=== PATIENT | female | born 1985 | race Caucasian/White ===

== ENCOUNTER → 2018-07-05 12:55 | Outpatient (CLI) | payer OTHER, SELFPAY ==
[2018-07-05 13:00] LABS: Adenovirus,PCR Not Detected (NotDetected); Bordetella Pertussis Not Detected (NotDetected); Chlamydophila Pneumoniae, PCR Not Detected (NotDetected); Coronavirus 229E Not Detected (NotDetected); Coronavirus NL63 Not Detected (NotDetected); Coronavirus OC43 Not Detected (NotDetected); Coronovirus HKU1,PCR Not Detected (NotDetected); Human Metapneumovirus Not Detected (NotDetected); Influenza A, PCR Not Detected (NotDetected); Influenza AH1, 2009 Not Detected (NotDetected); Influenza AH1, PCR Not Detected (NotDetected); Influenza AH3,PCR Not Detected (NotDetected); Influenza B, PCR Not Detected (NotDetected); Mycoplasma Pneumoniae, PCR Not Detected (NotDetected); Parainfluenza 1, PCR Not Detected (NotDetected); Parainfluenza 2, PCR Not Detected (NotDetected); Parainfluenza 3, PCR Not Detected (NotDetected); Parainfluenza 4, PCR Not Detected (NotDetected); Respiratory Syncytial Virus Not Detected (NotDetected); Rhinovirus/Enterovirus Not Detected (NotDetected)
--- NOTE | 2018-07-05 13:02 | XR_ITS ---
XR chest 2V HISTORY: Left-sided chest pain with cough, smoker ITS.REASON: COUGH,FEVER ORDERING PHYSICIAN: Claudia Latham PATIENT AGE: 32 years COMPARISON: None FINDINGS: The cardiomediastinal silhouette and pulmonary vascularity are within normal limits. The lungs are clear without infiltrates, suspicious nodules, or pleural effusions. There is mild hyperinflation. Calcified granuloma is present in the right upper lobe. There is a [id number] thoracic scoliosis convex right. IMPRESSION: 1. Hyperinflation suggesting small airway disease such as COPD, asthma, bronchitis 2. Thoracic scoliosis
== END ==
PROVIDERS: Visit Provider Nurse Practitioner Family
DX: R05 Cough (principal); R50.9 Fever, unspecified
CPT/HCPCS: 71046; 87486; 87581; 87633; 87798

== ENCOUNTER 2020-10-07 09:52 | Emergency (ER) | payer OTHER, SELFPAY ==
[2020-10-07 10:10] VITALS: BP 103/73; PULSE 96; RESP 17; TEMP 36.3; O2SAT 99; BMI 20.8
[2020-10-07 10:34] LABS: UTC Influenza A Antigen Negative (Negative); UTC Strep Screen (Rapid) Negative (Negative)
--- NOTE | 2020-10-07 10:34 | HMH.EDUTC ---
[facility] [place] Disposition Clinical Impression: Sinusitis Qualifiers: Sinusitis location: unspecified location Chronicity: unspecified Qualified Code(s): J32.9 - Chronic sinusitis, unspecified Disposition: Home, Self-Care Condition on Discharge: Good Instructions: Sinusitis, Sinus Headache, DI for Sinusitis, DI for COVID-19 (Suspected or Confirmed ), Preventing the Spread of Coronavirus Discharge Instructions Additional Instructions: *Monitor Temp, Over the counter Motrin or Tylenol as directed/as needed Tylenol every 4 hours and Motrin every 6 hours (as long as your family doctor has told you that you can take it) for fever or pain. and straight to ER if unable to lower temp less than 101.0 after medication given *Warm salt water gargles may help to soothe the throat *Throat Lozenges *Warm fluids like tea with honey may help to soothe the throat *Sleep elevated *Humidifier/Vaporizer *Flonase 2 sprays in each nostril daily but be aware that it may take 2-3 days before you notice improvement Over the counter Cough medication like Delsym may help with cough, make sure to check with pharmacy to make sure it will not interact with other medications you are taking Your throat swab was sent for culture. Those results are typically sent to your primary care. Be sure to follow up in 2-3 days with your family doctor/primary care physician if no improvement so they can review those result and treat if necessary. If you don?t have a primary care doctor, I recommend you get one but in the mean time, you will have to return to a walk in clinic Follow up IMMEDIATELY for new or worsening symptoms or no Noticeable improvement over the next 48-72 hours. 911 for difficulty breathing or swallowing You were tested for today for COVID19 your test result should be back in the next 24-48 hours, you may call to the [facility] to see if your test results are back in the next 48 hours [phone] [facility] hours are 9am-9pm You was given a handout with instructions for Self Quarantine and Self isolation for while you wait on test results and what to do if they are positive If you are positive the Health Dept will be contacting you also Prescriptions: Doxycycline Monohydrate [Doxycycline [place] 100mg Tab] 100 mg PO Q12 7 Days #14 tab Transmission Status: Received by [facility] Fluticasone Propionate [Flonase 50mcg nasal spray 16gm] 1 spr NS DAILY #1 bottle Transmission Status: Received by [facility] Referrals: Kerrie Tay APRN [Primary Care Provider] - As needed Forms: Work/School Release Time of Disposition: 10:48 Medical Decision Making - Fortino Inquiry Pt receiving controlled substance: No Fortino was queried for this patient: No Vital Signs: 10/07/20 10:10 10/07/20 10:54 Temperature 97.4 F L 97.4 F L Temperature Source Oral Pulse Rate 96 H Pulse Rate [Left Brachial] 96 H Respiratory Rate 17 17 Blood Pressure 103/73 L Blood Pressure [Left Arm] 103/73 L Blood Pressure Mean [Left Arm] 83 Blood Pressure Source [Left Arm] Automatic Cuff Blood Pressure Position [Left Arm] Sitting 02 Sat by Pulse Oximetry 99 Oxygen Delivery Method Room Air - Lab Data Lab results reviewed: Yes: I reviewed the patient's lab results. Lab Results 10/07/20 10:21: Influenza Type A Ag Negative, Influenza Type B Ag Negative 10/07/20 10:21: Strep Scn Rapid Clinic Negative Orders (Tests/Meds): ORDERS Category Date Time Status Covid-19 Nasal PCR ([facility]) Routine Lab 10/07/20 10:15 Received Strep Screen Confirmation Stat Micro 10/07/20 10:21 Received [facility] UTC HPI - General Stated complaint: body aches, headache, congestion Time Seen by Provider: 10/07/20 10:34 Mode of Arrival: Ambulatory Source of Information: Patient Limitations: No Limitations Description of Symptoms (Recalled from Triage Doc. by RN): PATIENT C/O HEADACHE, BODY ACHES, SCRATCHY THROAT, AND HEAD CONGESTION SINCE WEDNESDAY HEENT Symptoms (Recalled from RN notes): Yes Resp Symp
[2020-10-07 10:35] LABS: UTC Influenza B Antigen Negative (Negative)
[2020-10-07 10:54] VITALS: BP 103/73; PULSE 96; RESP 17; TEMP 36.3; O2SAT 99
== END 2020-10-07 10:57 | disposition home or self-care (01) ==
PROVIDERS: Emergency Provider Nurse Practitioner; PCP Nurse Practitioner Family
DX: Z20.822 Contact with and (suspected) exposure to COVID-19 (principal); J32.9 Chronic sinusitis, unspecified; F17.210 Nicotine dependence, cigarettes, uncomplicated; Z88.0 Allergy status to penicillin
CPT/HCPCS: 87804; 87880; 99202; G0463; U0003

== ENCOUNTER 2021-04-15 11:26 | Emergency (ER) | payer OTHER, SELFPAY ==
[2021-04-15 12:56] VITALS: BP 114/58; PULSE 65; RESP 19; TEMP 36.8; O2SAT 96; BMI 20.9
[2021-04-15 13:16] VITALS: BP 114/58; PULSE 65; RESP 16; TEMP 36.8
[2021-04-15 13:16] LABS: UTC Strep Screen (Rapid) Positive (Negative)
--- NOTE | 2021-04-15 13:29 | HMH.EDUTC ---
[facility] [place] Clinical Impression: Strep throat, Exposure to COVID-19 virus Disposition: Home, Self-Care Condition on Discharge: Good Instructions: DI for Strep Throat, Preventing the Spread of Coronavirus Discharge Instructions Additional Instructions: Drink plenty of fluids. Take tylenol or ibuprofen for pain or fever. Take the medications as directed. Follow up with your regular doctor. GO TO THE ER FOR ANY WORSENING SYMPTOMS Throw your tooth brush away and get a new one. Quarantine until you know the results of your covid-19 test. If it is positive, the health department should call you and give you further instructions about your length of Quarantine and other things. Notify your school or workplace of your results and follow their instructions regarding return to work/school. Prescriptions: Brompheniramine/Pseudoephed/Dm [Bromfed Dm Cough Syrup] 5 ml PO Q6HP PRN #240 ml PRN Reason: Cough Transmission Status: Received by [facility] predniSONE [Prednisone 20mg Tab] 20 mg PO BID 4 Days #8 tab Transmission Status: Received by [facility] Azithromycin [Z-Frank 250mg Tab*] 250 mg PO UD DOSE PK #6 tab Transmission Status: Received by [facility] Referrals: Kerrie Tay APRN [Primary Care Provider] - Forms: Work/School Release Time of Disposition: 13:33 Medical Decision Making - Medical Records Medical records reviewed: No: I reviewed the patient's medical records. - Fortino Inquiry Pt receiving controlled substance: No Vital Signs: 04/15/21 12:56 04/15/21 13:16 Temperature 98.3 F 98.3 F Temperature Source Oral Pulse Rate 65 Pulse Rate [Right] 65 Respiratory Rate 19 16 Blood Pressure 114/58 L Blood Pressure [Right Arm] 114/58 L Blood Pressure Mean [Right Arm] 76 02 Sat by Pulse Oximetry 96 - Lab Data Lab results reviewed: Yes: I reviewed the patient's lab results. Lab Results 04/15/21 13:02: Strep Scn Rapid Clinic Positive A Orders (Tests/Meds): ORDERS Category Date Time Status Covid-19 Nasal PCR ([facility]) Routine Lab 04/15/21 12:52 [place] [facility] [place] - General Stated complaint: congestion Time Seen by Provider: 04/15/21 13:29 Mode of Arrival: Ambulatory Source of Information: Patient Limitations: No Limitations Description of Symptoms (Recalled from Triage Doc. by RN): pt c/o sinus pressure/congestion, nasal drainage, OROURKE, watery eyes, and dry throat since yesterday. HEENT Symptoms (Recalled from RN notes): Yes (sinus drainage/pressure, OROURKE, dry throat) Resp Symptoms (Recalled from RN notes): No Skin Symptoms (Recalled from RN notes): No MS Symptoms (Recalled from RN notes): No Functional Status (Recalled from RN notes): na - History of Present Illness Provider Complaint: She c/o sore throat and a dry cough for the past 2 days. - Related Data Home Medications Medication Instructions Recorded Confirmed Buprenorphine HCl/Naloxone HCl 1 tab SL BID 10/07/20 10/07/20 [Buprenorphine-Nalox 8-2 mg Tab] Sertraline HCl [Zoloft] 25 mg PO DAILY 10/07/20 10/07/20 buPROPion HCL [Wellbutrin SR 150mg 150 mg PO DAILY 10/07/20 10/07/20 Tablet] hydrOXYzine HCL [Hydroxyzine HCl] 10 mg PO Q8HP PRN 10/07/20 10/07/20 Previous Rx's Medication Instructions Recorded Doxycycline Monohydrate 100 mg PO Q12 7 Days #14 tab 10/07/20 [Doxycycline [place] 100mg Tab] Fluticasone Propionate [Flonase 1 spr NS DAILY #1 bottle 10/07/20 50mcg nasal spray 16gm] Azithromycin [Z-Frank 250mg Tab*] 250 mg PO UD DOSE PK #6 tab 04/15/21 Brompheniramine/Pseudoephed/Dm 5 ml PO Q6HP PRN #240 ml 04/15/21 [Bromfed Dm Cough Syrup] predniSONE [Prednisone 20mg 20 mg PO BID 4 Days #8 tab 04/15/21 Tab] Allergies Allergy/AdvReac Type Severity Reaction Status Date / Time Penicillins Allergy Verified 10/07/20 10:29 - Worker's Comp Is this a Worker's Comp case?: No H History - Hepatitis A Screen Drug use history?: No H
== END 2021-04-15 13:42 | disposition home or self-care (01) ==
PROVIDERS: Emergency Provider Nurse Practitioner Family; PCP Nurse Practitioner Family
DX: J02.0 Streptococcal pharyngitis (principal); Z20.822 Contact with and (suspected) exposure to COVID-19; F17.210 Nicotine dependence, cigarettes, uncomplicated
CPT/HCPCS: 87880; 99202; C9803; G0463; U0003; U0005

== ENCOUNTER 2021-07-06 11:26 | Emergency (ER) | payer OTHER, SELFPAY ==
[2021-07-06 12:10] VITALS: BP 113/72; PULSE 72; RESP 17; TEMP 37; O2SAT 98; BMI 23.0
[2021-07-06 12:51] VITALS: BP 113/72; PULSE 72; RESP 17; TEMP 37; O2SAT 98
--- NOTE | 2021-07-06 13:06 | HMH.EDUTC ---
[facility] [place] Disposition Clinical Impression: Exposure to COVID-19 virus Disposition: Home, Self-Care Condition on Discharge: Good Instructions: DI for COVID-19 (Suspected or Confirmed ), How to Care for Someone with COVID-19 Additional Instructions: covid swab was sent to lab, call tomorrow for results. self isolate until test results are known to be negative No sign of a bacterial infection. Likely viral. Viruses can take 7-14 days to run their course. Nasal saline and bulb syringe or nose Kim to remove nasal drainage to help with nasal congestion. Hard to eat, drink, sleep with nasal congestion so important to keep this cleaned out. Monitor temp. Tylenol or Motrin as needed for pain or fever Encourage fluids, water, Gatorade, Powerade, Pedialyte if /toddler/child Warm salt water gargles Warm fluids Sore throat lozenges Sleep elevated Humidifier/vaporizer Follow-up immediately for new or worsening symptoms or no noticeable improvement over the next 48-72 hours. Referrals: Kerrie Tay APRN [Primary Care Provider] - Time of Disposition: 13:08 Medical Decision Making - Fortino Inquiry Pt receiving controlled substance: No Vital Signs: 07/06/21 12:10 07/06/21 12:51 Temperature 98.6 F 98.6 F Temperature Source Oral Pulse Rate 72 Pulse Rate [Right Brachial] 72 Respiratory Rate 17 17 Blood Pressure 113/72 Blood Pressure [Right Arm] 113/72 Blood Pressure Mean [Right Arm] 85 Blood Pressure Source [Right Arm] Automatic Cuff Blood Pressure Position [Right Arm] Sitting 02 Sat by Pulse Oximetry 98 Oxygen Delivery Method Room Air Orders (Tests/Meds): ORDERS Category Date Time Status Covid-19 Nasal PCR ([facility]) Routine Lab 07/06/21 12:20 Received [facility] [place] HPI - General Chief complaint: Urgent [facility] Stated complaint: covid exposure, symptoms, covid test Time Seen by Provider: 07/06/21 13:06 Mode of Arrival: Ambulatory Source of Information: Patient Limitations: No Limitations Description of Symptoms (Recalled from Triage Doc. by RN): COVID TEST D/T EXPOSURE. DENIES SYMPTOMS. HEENT Symptoms (Recalled from RN notes): No Resp Symptoms (Recalled from RN notes): No Skin Symptoms (Recalled from RN notes): No MS Symptoms (Recalled from RN notes): No Functional Status (Recalled from RN notes): WNL - History of Present Illness Provider Complaint: 35 yr old female presents for covid test, + for covid - Related Data Home Medications Medication Instructions Recorded Confirmed Buprenorphine HCl/Naloxone HCl 1 tab SL BID 10/07/20 10/07/20 [Buprenorphine-Nalox 8-2 mg Tab] Sertraline HCl [Zoloft] 25 mg PO DAILY 10/07/20 10/07/20 buPROPion HCL [Wellbutrin SR 150mg 150 mg PO DAILY 10/07/20 10/07/20 Tablet] hydrOXYzine HCL [Hydroxyzine HCl] 10 mg PO Q8HP PRN 10/07/20 10/07/20 Previous Rx's Medication Instructions Recorded Doxycycline Monohydrate 100 mg PO Q12 7 Days #14 tab 10/07/20 [Doxycycline [place] 100mg Tab] Fluticasone Propionate [Flonase 1 spr NS DAILY #1 bottle 10/07/20 50mcg nasal spray 16gm] Azithromycin [Z-Frank 250mg Tab*] 250 mg PO UD DOSE PK #6 tab 04/15/21 Brompheniramine/Pseudoephed/Dm 5 ml PO Q6HP PRN #240 ml 04/15/21 [Bromfed Dm Cough Syrup] predniSONE [Prednisone 20mg 20 mg PO BID 4 Days #8 tab 04/15/21 Tab] Allergies Allergy/AdvReac Type Severity Reaction Status Date / Time Penicillins Allergy Verified 10/07/20 10:29 - Worker's Comp Is this a Worker's Comp case?: No [facility] History - Hepatitis A Screen Drug use history?: No High risk sexual behaviors?: No History of sexually transmitted infection?: No Currently employed?: No Childcare worker?: No Do you have indoor plumbing?: Yes Do you have electricity?: Yes Attestation statement:: This patient has been screened for Hepatitis A risk factors. I have reviewed the patient's past medical history: Yes - Social History Smoking Status: Current every day smoker
== END 2021-07-06 13:21 | disposition home or self-care (01) ==
PROVIDERS: Emergency Provider Nurse Practitioner Family; PCP Nurse Practitioner Family
DX: U07.1 COVID-19 (principal); F17.210 Nicotine dependence, cigarettes, uncomplicated
CPT/HCPCS: 99202; C9803; G0463; U0003; U0005

== ENCOUNTER 2021-09-23 14:23 | Emergency (ER) | payer OTHER, SELFPAY ==
[2021-09-23 14:23] VITALS: BP 91/80; PULSE 109; RESP 18; TEMP 36.9; O2SAT 99; BMI 21.1
[2021-09-23 14:53] VITALS: BMI 21.1
--- NOTE | 2021-09-23 14:53 | CT_ITS ---
FINAL REPORT CLINICAL HISTORY: abd pain, h/o stones FINDINGS: CT OF THE ABDOMEN AND PELVIS WITH CONTRAST Axial CT images of the abdomen and pelvis were obtained after the administration of oral and iv contrast. Coronal reformatted images were also obtained and reviewed.This study was performed with techniques to keep radiation doses as low as reasonably achievable (ALARA). Individualized dose reduction techniques using automated exposure control or adjustment of mA and/or kV according to the patient's size were employed. Abdomen :There is mild bibasilar atelectasis. The liver has an unremarkable appearance, without evidence of mass. The patient is status post cholecystectomy. There is mild biliary ductal dilatation. The common bile duct measures 10 mm. This is of uncertain significance and could represent post cholecystectomy change but a biliary ductal stone is not excluded. There is a stable fluid collection in the upper gallbladder fossa measuring 26 mm. This is of uncertain etiology. Differential diagnoses include chronic hematoma, seroma, biloma, or abscess. The pancreas appears normal. The spleen size is within normal limits. There are small nonobstructing left renal stones. There is no evidence of adenopathy. Pelvis: The appendix normal. There is a corpus luteum cyst in the right ovary. The urinary bladder is unremarkable. There is a small amount of free fluid which may be physiologic or reactive. IMPRESSION: 1. Fluid collection in the upper gallbladder fossa measuring 26 mm of uncertain significance. Differential diagnoses include chronic hematoma, seroma, biloma, or abscess. 2. Mild common bile duct dilatation of uncertain significance . This could represent post cholecystectomy change but a biliary ductal stone is not excluded. MRCP may be beneficial for further evaluation. 3. Right ovarian corpus luteum cyst. Reviewed, Interpreted and Dictated by Gordon Dash III, MD Transcribed by Chasidy Brizuela Authenticated by Gordon Dash III, MD on 09/23/2021 04:12:06 PM [facility]
[2021-09-23 15:04] LABS: Microscopic, Urine URINE MICROSCOPIC (MICROSCOPIC)
[2021-09-23 15:08] LABS: Basophils # 0.1 K/mm3 (0-0.2); Chloride 103 mmol/L (98-107); Eosinophils # 0.2 K/mm3 (0.0-0.4); Eosinophils % 2.5 % (0.1-12.0); Hematocrit 41.6 % (37.0-47.0); Lymphocytes # 1.8 K/mm3 (0.7-4.5); Lymphocytes % 19.6 % (10-50); Mean Corpuscular HGB Conc 33.6 g/dL (31.8-35.4); Mean Corpuscular Hemoglobin 31.3 pg (27.0-31.2); Mean Corpuscular Volume 93.1 fl (81-99); Mean Platelet Volume 8.5 fl (7.4-10.4); Monocytes # 0.6 K/mm3 (0.1-1.0); Monocytes % 6.1 % (1.7-9.3); Neutrophils # 6.5 K/mm3 (1.8-7.8); Neutrophils % 70.8 % (37.0-80.0); Platelet Count 262 K/mm3 (142-424); Red Blood Count 4.46 M/mm3 (4.20-5.40); Red Cell Distribution Width 13.4 % (11.5-17.5); Sodium 135 mmol/L (136-145); White Blood Count 9.1 K/mm3 (4.8-10.8)
--- NOTE | 2021-09-23 15:10 | HMH.EDABDPAI ---
ED Disposition Clinical Impression: Upper abdominal pain Hematuria Qualifiers: Hematuria type: unspecified type Qualified Code(s): R31.9 - Hematuria, unspecified Disposition: Home, Self-Care Condition on Discharge: Good Instructions: DI for Acute Abdominal Pain Prescriptions: Dicyclomine HCl [Bentyl 10mg capsule] 10 mg PO TID PRN #15 cap PRN Reason: Cramping Transmission Status: Received by [facility] Referrals: Kerrie Tay APRN [Primary Care Provider] - Forms: Work/School Release - Critical Care Critical Care Time: No Attestation: On 09/23/21, the high probability of a clinically significant, sudden or life threatening deterioration of the following system(s) required my full and direct attention, intervention and personal management. The time I documented below is in addition to time spent performing reported procedures but includes the following listed in this critical care notation. Medical Decision Making - Medical Records Medical records reviewed: Yes: I reviewed the patient's medical records. - Fortino Inquiry Pt receiving controlled substance: No Vital Signs: 09/23/21 14:23 09/23/21 15:15 Temperature 98.5 F 98.6 F Temperature Source Oral Pulse Rate 107 H Pulse Rate [Right Radial] 109 H Respiratory Rate 18 18 Blood Pressure 103/70 L Blood Pressure [Right Arm] 91/80 L Blood Pressure Mean 80 Blood Pressure Mean [Right Arm] 83 Blood Pressure Source [Right Arm] Automatic Cuff Blood Pressure Position [Right Arm] Sitting 02 Sat by Pulse Oximetry 99 98 Oxygen Delivery Method Room Air - Lab Data Lab Results 09/23/21 14:38: Urine HCG, Qual Negative 09/23/21 14:48: WBC 9.1, RBC 4.46, Hgb 14.0, Hct 41.6, MCV 93.1, MCH 31.3 H, MCHC 33.6, RDW 13.4, Plt Count 262, MPV 8.5, Neut % (Auto) 70.8, Lymph % (Auto) 19.6, [place] % (Auto) 6.1, Eos % (Auto) 2.5, Baso % (Auto) 1.0, Neut # (Auto) 6.5, Lymph # (Auto) 1.8, [place] # (Auto) 0.6, Eos # (Auto) 0.2, Baso # (Auto) 0.1 09/23/21 14:48: Sodium 135 L, Potassium 3.6, Chloride 103, Carbon Dioxide 29, Anion Gap 6.6, BUN 8, Creatinine 0.70, Estimated Creat Clear 107, Estimated GFR 95, Est GFR ( Amer) 115, Glucose 135 H, Calcium 8.9, Total Bilirubin 0.7, AST 23, ALT 15, Alkaline Phosphatase 49, Total Protein 6.8, Albumin 4.1, Globulin 2.7, Albumin/Globulin Ratio 1.5, Lipase 37 09/23/21 14:54: Urine Color Yellow, Urine Appearance Clear, Urine pH 6.0, Ur Specific [place] 1.015, Urine Protein Negative, Urine Glucose (UA) Negative, Urine Ketones Negative, Urine Blood 2+, Urine Nitrate Negative, Urine Bilirubin Negative, Urine Urobilinogen 0.2, Ur Leukocyte Esterase Negative, Urine RBC 5-10, Urine WBC Occasional, Ur Squamous Epith Cells 5-10, Urine Bacteria 1+ Result diagrams: 09/23/21 14:48 09/23/21 14:48 Orders (Tests/Meds): ED MEDICATIONS Generic Name Dose Route Start Last Admin Trade Name Freq PRN Reason Stop Dose Admin Sodium Chloride 10 ml 09/23/21 14:54 Sodium Chloride 0.9% 10ml Flush Syringe IV 10/23/21 14:53 NEEDED PRN Maintain IV Site Sodium Chloride 10 ml 09/23/21 15:39 09/23/21 15:40 Sodium Chloride 0.9% 10ml Syr (Rad Only) IV 10/23/21 15:38 10 ml NEEDED PRN Administration Maintain IV Site Discontinued Medications Generic Name Dose Route Start Last Admin Trade Name Freq PRN Reason Stop Dose Admin Iopamidol 75 ml 09/23/21 15:39 09/23/21 15:40 Iopamidol-370 (76%);100ml Bottle IV 09/23/21 15:40 75 ml ONCE ONE Administration Ketorolac Tromethamine 15 mg 09/23/21 15:02 09/23/21 15:12 Ketorolac 30mg/Ml Vial IV 09/23/21 15:03 15 mg ONCE ONE Administration ORDERS Category Date Time Status EKG Request [ECG Request by /Susie] Stat Y 09/23/21 16:59 Ordered - ECG Data Tracing #1 I reviewed this ECG and interpreted as documented below: ekg by nsr, non spec rt bundle block, no st elev Medical Decision Narrative: 1712, appears well, vss,
[2021-09-23 15:11] LABS: Alanine Aminotransferase 15 U/L (12-78); Alkaline Phosphatase 49 U/L (38-126); Aspartate Amino Transferase 23 U/L (14-36); Bilirubin,Total 0.7 mg/dl (0.2-1.3); Blood Urea Nitrogen 8 mg/dl (7-17); Calcium 8.9 mg/dl (8.4-10.2); Carbon Dioxide 29 mmol/L (22.0-30.0); Creatinine Clearance Estimated 107 mL/min (50-200); Estimated Glomerular Filt Rate 95 ml/min (>60); GFR (African American) 115 ML/MIN (>60); Glucose 135 mg/dl (74-100); Lipase 37 U/L (23-300)
[2021-09-23 15:13] LABS: Anion Gap 6.6 mEq/L (5-15); Potassium 3.6 mmoL/L (3.5-5.1)
[2021-09-23 15:15] VITALS: BP 103/70; PULSE 107; RESP 18; TEMP 37; O2SAT 98
[2021-09-23 15:16] LABS: Albumin Level 4.1 g/dl (3.5-5.0); Albumin/Globulin Ratio 1.5 (1.1-1.8); Globulin 2.7 g/dL (1.3-3.2); Total Protein,Serum 6.8 g/dl (6.3-8.2)
[2021-09-23 15:17] LABS: Appearance,Urine CLEAR (Clear); Bilirubin,Urine Negative (Negative); Blood, Urine 2+ (Negative); Color,Urine YELLOW (Yellow); Glucose,Urine (UA) Negative (Negative); Ketones,Urine Negative (Negative); Leukocyte Esterase,Urine Negative (Negative); Nitrate,Urine Negative (Negative); Protein,Urine Negative (Negative); Specific Gravity, Urine 1.015 (1.005-1.030); Urobilinogen,Urine 0.2 EU/dl (0.2)
[2021-09-23 15:25] LABS: Urine Pregnancy, HCG Qual. Negative (Negative)
[2021-09-23 15:48] LABS: WBC,Urine Occasional #/hpf (0-3)
[2021-09-23 15:49] LABS: Bacteria,Urine 1+ /lpf
--- NOTE | 2021-09-23 16:26 | XR_ITS ---
PROCEDURE INFORMATION: Exam: XR Chest Exam date and time: 09/23/2021 4:24 PM Age: 35 years old Clinical indication: Other: Lower chest pain. ; Patient HX: Smoker; Additional info: Upper abd/lower chest pain TECHNIQUE: Imaging protocol: XR of the chest. Views: 2 views. COMPARISON: CR CXR2V XR chest 2V 07/05/2018 1:06 PM FINDINGS: Lungs: Chronic pulmonary hyperinflation. Chronic calcified granulomatous changes suggested in the medial right upper lobe, compared with the prior exam. No focal consolidation. Interstitial scarring and emphysematous changes in the apices. No definite acute findings. Pleural spaces: Unremarkable. No significant pleural effusion. No pneumothorax. Heart/Mediastinum: The cardiac silhouette is normal. Bones/joints: Thoracolumbar scoliosis. There are spinal degenerative changes, with multilevel disc narrrowing and spondylosis. Gastrointestinal tract: Mild gaseous distention of the splenic flexure of the colon. IMPRESSION: 1. No acute findings. 2. Chronic pulmonary hyperinflation, emphysematous changes and granulomatous changes. No focal consolidation. 3. Additional nonemergency and chronic findings as above.
--- NOTE | 2021-09-23 17:09 | ECG_ITS ---
APPROVED REPORT Exam: Resting ECG HR:73 bpm ECG Measurements Heart Rate 73 AXES ID 131 P 74 QRSd 83 QRS 61 QT 361 T 48 QTc 387 Conclusion SINUS RHYTHM POSSIBLE RIGHT VENTRICULAR CONDUCTION DELAY [RSR (QR) IN V1/V2] BORDERLINE ECG UNCONFIRMED REPORT Electronically signed by : Blaise Laughlin MD 09/25/2021 16:18:18
[2021-09-23 17:37] VITALS: BP 107/68; PULSE 78; RESP 18; TEMP 37; O2SAT 100
== END 2021-09-23 17:40 | disposition home or self-care (01) ==
PROVIDERS: Emergency Provider Emergency Medicine; PCP Nurse Practitioner Family
DX: R10.12 Left upper quadrant pain (principal); R31.9 Hematuria, unspecified; R11.0 Nausea; Z88.0 Allergy status to penicillin; F17.210 Nicotine dependence, cigarettes, uncomplicated
CPT/HCPCS: 71046; 74177; 80053; 81001; 81025; 83690; 85025; 93005; 96374; 99284; Q9967

== ENCOUNTER 2022-02-19 14:29 | Emergency (ER) | payer OTHER, SELFPAY ==
[2022-02-19 16:05] VITALS: BP 109/72; PULSE 67; RESP 20; TEMP 36.7; O2SAT 100; BMI 19.7
--- NOTE | 2022-02-19 16:12 | EXP.UTC ---
Discharge Plan Disposition Patient Disposition: Home, Self-Care Condition: Good Prescriptions Prescriptions: No Action buprenorphine-naloxone 1 EACH tablet, sublingual 1 tab SL BID Label Comments: PLACE 2 TABLETS UNDER THE TONGUE AND ALLOW TO DISSOLVE 1 TIME EACH DAY Referrals Referrals: Román Kincaid MD [Primary Care Provider] - Enter time for follow up Activity Restrictions/Add. Instructions Additional Instructions/Restrictions: *Monitor Temp, Over the counter Motrin or Tylenol as directed/as needed Tylenol every 4 hours and Motrin every 6 hours (as long as your family doctor has told you that you can take it) for fever or pain. and straight to ER if unable to lower temp less than 101.0 after medication given *Warm salt water gargles may help to soothe the throat *Throat Lozenges? *Warm fluids like tea with honey may help to soothe the throat? *Sleep elevated *Humidifier/Vaporizer Follow up IMMEDIATELY for new or worsening symptoms or no Noticeable improvement over the next 48-72 hours. 911 for difficulty breathing or swallowing You were tested for today for COVID19 your test result should be back in the next 24-48 hours, you may check your results on the [facility] My Health Portal Make sure to take your Vitamins Vit. C Vit D and Zinc if you can take them Clinical Impressions Clinical Impression: Encounter for laboratory testing for COVID-19 virus Stand Alone Forms Stand Alone Forms: Work/School Release Discharge ED Provider: hCelsy Monzon [facility] [place] HPI General Stated complaint: exposure and achey,headache,chills Time Seen by Provider: 02/19/22 16:10 History of Present Illness Provider Complaint: Patient states that she was recently around her that tested positive for COVID on Wednesday so today when she was feeling worse she came in to get tested Related Data Home Medications Medication Instructions Recorded Confirmed buprenorphine 8 mg-naloxone 2 mg 1 tab SL BID recovery 10/07/20 02/19/22 sublingual tablet Allergies Allergy/AdvReac Type Severity Reaction Status Date / Time Penicillins Allergy Verified 10/07/20 10:29 [facility] Surgical History (Updated 02/19/22 @ 16:19 by Mirlande Fish RN) History of cholecystectomy History of tubal ligation Social History (Updated 02/19/22 @ 16:19 by Mirlande Fish RN) Smoking Status: Current every day smoker tobacco type: cigarettes packs per day: 1 alcohol intake: never current occupational status: other Travel in the last 8 weeks: None ROS Obtained: Yes All systems reviewed & no additional complaints except as documented and Yes Systems reviewed as appropriate & no additional complaints except as documented Constitutional Constitutional: Reports system reviewed and no additional complaints, except as documented, Reports as per HPI, Reports body ache, Reports chills, Reports fatigue, Reports fever(s) and Reports headache(s) ENT Ears, Nose, Mouth, and Throat: Reports system reviewed and no additional complaints, except as documented and Reports headache(s) Cardiovascular Cardiovascular: Reports system reviewed and no additional complaints, except as documented Respiratory Respiratory: Reports system reviewed and no additional complaints, except as documented Gastrointestinal Gastrointestingal: Reports system reviewed and no additional complaints, except as documented Genitourinary Female Genitourinary: Reports system reviewed and no additional complaints, except as documented Musculoskeletal Musculoskeletal: Reports system reviewed and no additional complaints, except as documented Neurologic Neurologic: Reports headache(s) Endocrine Endocrine: Reports fatigue Physical Exam General General appearance: alert and in no apparent distress Respiratory Respiratory exam: Present normal lung sounds bilaterally; Absent respiratory distress or wheezes Cardiovascular Cardiovascular exam: Present
[2022-02-19 16:33] VITALS: BP 109/72; PULSE 67; RESP 20; TEMP 36.7; O2SAT 100
== END 2022-02-19 16:51 | disposition home or self-care (01) ==
PROVIDERS: Emergency Provider Nurse Practitioner; PCP Family Medicine
DX: R51.9 Headache, unspecified (principal); F17.210 Nicotine dependence, cigarettes, uncomplicated; Z20.822 Contact with and (suspected) exposure to COVID-19
CPT/HCPCS: 99212; C9803; G0463; U0003; U0005

== ENCOUNTER → 2022-05-15 13:07 | Outpatient (CLI) | payer OTHER, SELFPAY ==
[2022-05-15 18:17] LABS: MANUAL DIFFERENTIAL MANUAL DIFFERENTIAL (MANUAL DIFF)
[2022-05-15 18:31] LABS: Chloride 100 mmol/L (98-107)
[2022-05-15 18:32] LABS: Potassium 4.3 mmoL/L (3.5-5.1); Sodium 137 mmol/L (136-145)
[2022-05-15 18:34] LABS: Blood Urea Nitrogen 11 mg/dl (7-17); Estimated Glomerular Filt Rate 94 ml/min (>60); GFR (African American) 114 ML/MIN (>60)
[2022-05-15 18:35] LABS: Alanine Aminotransferase 8 U/L (12-78); Albumin Level 4.3 g/dl (3.5-5.0); Albumin/Globulin Ratio 1.8 (1.1-1.8); Alkaline Phosphatase 52 U/L (38-126); Anion Gap 12.3 mEq/L (5-15); Aspartate Amino Transferase 23 U/L (14-36); Bilirubin,Total 0.6 mg/dl (0.2-1.3); Calcium 9.6 mg/dl (8.4-10.2); Carbon Dioxide 29 mmol/L (22.0-30.0); Globulin 2.4 g/dL (1.3-3.2); Glucose 82 mg/dl (74-100); Total Protein,Serum 6.7 g/dl (6.3-8.2)
[2022-05-15 18:36] LABS: Basophils # 0.1 K/mm3 (0-0.2); Basophils % 1.1 % (0.1-2.0); Eosinophils # 0.1 K/mm3 (0.0-0.4); Eosinophils % 0.6 % (0.1-12.0); Hematocrit 41.8 % (37.0-47.0); Hemoglobin 13.6 g/dL (12.2-16.2); Lymphocytes # 1.6 K/mm3 (0.7-4.5); Lymphocytes % 19.2 % (10-50); Mean Corpuscular HGB Conc 32.6 g/dL (31.8-35.4); Mean Corpuscular Hemoglobin 30.9 pg (27.0-31.2); Mean Corpuscular Volume 94.7 fl (81-99); Mean Platelet Volume 8.6 fl (7.4-10.4); Monocytes # 0.3 K/mm3 (0.1-1.0); Monocytes % 4.1 % (1.7-9.3); Neutrophils # 6.3 K/mm3 (1.8-7.8); Neutrophils % 75.1 % (37.0-80.0); Platelet Count 314 K/mm3 (142-424); Red Blood Count 4.41 M/mm3 (4.20-5.40); Red Cell Distribution Width 12.6 % (11.5-17.5); White Blood Count 8.4 K/mm3 (4.8-10.8)
[2022-05-15 18:56] LABS: Lymphocytes % 19 % (10-50); Monocytes % 3 % (2-9); Neutrophils % 76 % (42-76); Platelet Estimate Normal; RBC Morphology Normal; Total Cells Counted 100
== END ==
PROVIDERS: PCP Nurse Practitioner Family; Visit Provider Nurse Practitioner Family
DX: R55 Syncope and collapse (principal); R00.0 Tachycardia, unspecified; Z20.822 Contact with and (suspected) exposure to COVID-19
CPT/HCPCS: 80053; 84443; 85007; 85014; 85018; 85048; 85049; 93225; 93226; C9803; U0003; U0005

== ENCOUNTER → 2022-06-08 13:50 | Outpatient (CLI) | payer OTHER, SELFPAY | PROVIDERS: PCP Nurse Practitioner Family; Visit Provider Physician Assistant | DX: R07.9 Chest pain, unspecified (principal); R00.2 Palpitations; F17.200 Nicotine dependence, unspecified, uncomplicated | CPT/HCPCS: 93270 ==

== ENCOUNTER → 2022-06-08 13:57 | Outpatient (CLI) | payer OTHER, SELFPAY ==
--- NOTE | 2022-06-08 13:57 | MM_ITS ---
PROCEDURE INFORMATION: Exam: Left Diagnostic Breast Tomosynthesis Exam date and time: 06/08/2022 2:03 PM Age: 36 years old Clinical indication: Concern for left breast pain and swelling. No family history of breast cancer. TECHNIQUE: Imaging protocol: Left Diagnostic tomosynthesis and 2D mammography including computer-aided detection (CAD) when performed. Unilateral or bilateral exam. - only a prior left MLO COMPARISON: MAMMO DIAGNOSTIC DIGITAL BILAT 05/02/2020 3:25 PM FINDINGS: MAMMOGRAPHY: Breast composition: The breasts are extremely dense, which lowers the sensitivity of mammography. Mass: None. Architectural distortion: None. Calcifications: No suspicious calcifications. Asymmetric density: None. Skin thickening: None. Axillary adenopathy: None. IMPRESSION: Patient will be recalled for left breast axillary sonography for further evaluation of left breast pain and swelling. Further evaluation of a painful abnormality should be based on clinical grounds regardless of radiographic findings or lack thereof. No mammographic evidence of malignancy. ASSESSMENT: BI-RADS Category 0: Incomplete- Need Additional Imaging Evaluation and/or Prior Mammograms for Comparison
== END ==
PROVIDERS: Visit Provider Nurse Practitioner Family
DX: N64.4 Mastodynia (principal); N63.20 Unspecified lump in the left breast, unspecified quadrant; R22.9 Localized swelling, mass and lump, unspecified
CPT/HCPCS: 77062; 77066; G0279

== ENCOUNTER → 2022-07-03 12:34 | Outpatient (CLI) | payer OTHER, SELFPAY ==
--- NOTE | 2022-07-03 | CA_ITS ---
APPROVED REPORT Exam: Exercise Treadmill Technologist: Cristina Ramirez, Ht: 5 ft 7 in Wt: 125 lbs BSA: 1.66 m2 HR: 63 bpm BP: 112/73 mmHg Medical History Medications: BuPRenorphinE,,,,, LiNACLOTIDE,,,,, NaloXone,,,,, Stress Test Details Test: Bakari HR Resting HR: 64 bpm Max Heart Rate (APMHR): 183.816303 bpm Max HR Achieved: 164 bpm Target HR (85% APMHR): 155.260501 bpm % of APMHR: 89.62 Recovery HR: 66 bpm BP Resting BP: 111.0/71.0 mmHg Max BP: 112.0/73.0 mmHg Recovery BP: 101.0/65.0 mmHg ECG Clinical Exercise duration: 08:45 min Highest Stage Achieved: III Exercise capacity: 10.1 METs Stress ECG Conclusion Symptoms: No CP or SOA Arrhythmias/Ectopy: none ST-T Changes: <1.5mm ST changes. Test Summary REST . . . . . . . Sitting REST . . . . . . . Standing REST . . . . . . . Standing REST 03:56 0.0 0.0 64 . 111/ 71 . . Stage 1 01:00 10.0 1.7 96 . . . . Stage 1 02:00 10.0 1.7 98 . . . . Stage 1 03:00 10.0 1.7 92 . . . . Stage 2 01:00 12.0 2.5 102 . 96/ 68 . . Stage 2 02:00 12.0 2.5 103 . 96/ 68 . . Stage 2 03:00 12.0 2.5 112 . 110/ 80 . . Stage 3 01:00 14.0 3.4 140 . . . . Stage 3 02:00 14.0 3.4 149 . . . . Stage 3 02:45 14.0 3.4 156 . . . Stop exercise at 08:45 RECOVERY 01:00 0.0 0.0 102 . . . . RECOVERY 02:00 0.0 0.0 75 . . . . RECOVERY 03:00 0.0 0.0 77 . . . . RECOVERY 03:51 0.0 0.0 66 . 101/ 65 . . Electronically signed by : Theo Oneil MD 07/03/2022 16:23:54
--- NOTE | 2022-07-03 12:50 | CA_ITS ---
APPROVED REPORT EXAM: Comprehensive 2D, Doppler, and color-flow Echocardiogram Mr Teacher: Susanna Dillon RVT Ht: 5 ft 7 in Wt: 125lbs BSA: 1.66 BP: 110/74 mmHg Indications: PALPS,SOA,CP,SMOKER Stress Test Details HR Max Heart Rate (APMHR): 183.402517 bpm Target HR (85% APMHR): 155.776068 bpm BP ECG Conclusion 1. Patient exercised on Bakari protocol achieved 10.1 METs of workload on treadmill, there was no exercise-induced chest discomfort. EKG was negative for ischemia. 2. Resting echocardiogram showed normal left ventricular size and function with no regional wall motion abnormality, estimated ejection fraction 55%, with exercise there is increase in contractility of all the segments of the myocardium with hyperdynamic left ventricular systolic response, no obvious wall motion abnormality to suggest underlying ischemic heart disease. 3. Normal exercise stress echo. Electronically signed by : Theo Oneil MD 07/03/2022 16:24:53
--- NOTE | 2022-07-03 12:50 | CA_ITS ---
APPROVED REPORT EXAM: Comprehensive 2D, Doppler, and color-flow Echocardiogram Refrigeration Operator: Susanna Dillon RVT Ht: 5 ft 7 in Wt: 125lbs BSA: 1.66 BP: 110/74 mmHg Indications: PALPS,SMOKER,CP,SOA 2D Dimensions LVOT 1.93 cm (M/F) 1.5-2.5 LA Volume 18.50 mL LA Volume Index 11.14 mL/m2 (M/F) 16-34 M-Mode Dimensions RVDd 1.41 cm (0.9-2.6) LA Diam 3.04 cm (1.9-4.0) LVDd 4.70 cm (3.5-5.7) Ao Diam 2.45 cm (2.0-3.7) LVDs 3.19 cm (3.5-5.7) IVSd 0.63 cm (0.6-1.1) PWd 0.44 cm (0.6-1.1) EF (Teich) 60.40% FS 32.10% EDV (Teich) 102.40 mL TAPSE 1.85 (<1.7) ESV (Teich) 40.60 mL LV Diastology E Decel Time 237.00 (160-240 msec) E/A Ratio 1.9 MED E' 7.30 (< 7 cm/sec) E'/MED E' Ratio 14.01 (>14) LAT E' 16.00 (<10 cm/sec) E/LAT E' Ratio 6.39 (>14) Aortic Valve AO Peak GR. 3.90 mmHg Mitral Valve MV E Max Jalen. 102.00 (40-130 cm/s) MV A Velocity 54.00 (40-130 cm/s) E/A Ratio 1.88 MV Decel. Time 237.00 (160-240 ms) MV PHT 69.00 ms Pulmonary Valve PV Peak Velocity 72.00 (50-150 cm/s) Tricuspid Valve TR P. Velocity 233.00 cm/s RAP Estimate 10.00 mmHg RVSP 31.80 mmHg Left Ventricle Left atrium is normal size, left ventricle is normal size estimate ejection fraction 55% with no regional wall motion abnormality, diastolic parameters are within normal range. Right Ventricle Right atrium and right ventricle are normal size and contractility. Aortic Valve Aortic valve is grossly normal there is no aortic stenosis aortic insufficiency. Mitral Valve Mitral valve is grossly normal, there is trace mitral regurgitation. Tricuspid Valve Tricuspid grossly normal, there is trace tricuspid regurgitation, tricuspid regurgitation jet velocity is inadequate for calculation of the right ventricular systolic pressure. Pulmonic Valve Pulmonic valve is poorly visualized. Great Vessels Aortic root is normal size. Inferior vena cava is normal size with normal inspiratory collapse. Pericardium No significant pericardial effusion noted. Conclusion 1. Normal left ventricular size, preserved left ventricular systolic function, estimated ejection fraction 55% with no regional wall motion abnormality, diastolic parameters are within normal range. 2. Trace mitral and tricuspid regurgitation. 3. No significant pericardial effusion noted. 4. Inferior vena cava is normal size with normal inspiratory collapse. Electronically signed by : Theo Oneil MD 07/03/2022 16:21:24
--- NOTE | 2022-07-03 14:39 | US_ITS ---
PROCEDURE INFORMATION: Exam: US Left Breast, Complete Exam date and time: 07/03/2022 3:05 PM Age: 36 years old Clinical indication: Recall for further evaluation of left breast and axillary pain, from 06/08/2022. TECHNIQUE: Imaging protocol: Complete ultrasound of all four quadrants of the Left breast and the retroareolar regions, including ultrasound of the axilla when performed. COMPARISON: US BREAST LIMITED LT 05/02/2020 1:43 PM FINDINGS: Breast: Left sonography, all 4 quadrants, retroareolar and axilla. At 8 o'clock 1 cm from the nipple, hypoechoic avascular mass which may reflect a complicated cluster of cysts, measuring 0.3 x 0 3 by 0.4 cm. At 7 o'clock 2 cm from the nipple, complicated cyst measuring 0.5 x 0.3 by 0.5 cm. At 11 o'clock 1 cm from the nipple, probable simple cyst measuring 0.3 by 0.3 x 0.2 cm, too small to characterize fully. Sonographically unremarkable left axillary lymph node. IMPRESSION: Probably benign cystic change at 8, 7, and 11 o'clock. Suggest six-month follow-up targeted left sonography unless otherwise clinically indicated. Further evaluation of a painful abnormality should be based on clinical grounds regardless of radiographic findings or lack thereof. ASSESSMENT: BI-RADS Category 3: Probably benign
== END ==
PROVIDERS: PCP Family Medicine; Visit Provider Physician Assistant
DX: R00.2 Palpitations (principal); R07.9 Chest pain, unspecified; N64.89 Other specified disorders of breast; F17.200 Nicotine dependence, unspecified, uncomplicated
CPT/HCPCS: 76641; 93017; 93306; 93350

== ENCOUNTER → 2022-10-22 23:15 | Outpatient (CLI) | payer OTHER, SELFPAY | PROVIDERS: PCP Family Medicine; Visit Provider Family Medicine | DX: R50.9 Fever, unspecified (principal); R51.9 Headache, unspecified | CPT/HCPCS: C9803; U0003; U0005 ==

== ENCOUNTER → 2022-12-21 17:59 | Outpatient (CLI) | payer OTHER, SELFPAY ==
[2022-12-21 19:02] LABS: Basophils % 0.6 % (0.1-2.0); Eosinophils # 0.2 K/mm3 (0.0-0.4); Eosinophils % 2.1 % (0.1-12.0); Hematocrit 38.3 % (37.0-47.0); Hemoglobin 12.2 g/dL (12.2-16.2); Lymphocytes % 26.2 % (10-50); Mean Corpuscular HGB Conc 31.8 g/dL (31.8-35.4); Mean Corpuscular Hemoglobin 29.4 pg (27.0-31.2); Mean Corpuscular Volume 92.7 fl (81-99); Mean Platelet Volume 8.1 fl (7.4-10.4); Monocytes # 0.4 K/mm3 (0.1-1.0); Monocytes % 5.5 % (1.7-9.3); Neutrophils % 65.5 % (37.0-80.0); Platelet Count 249 K/mm3 (142-424); Red Blood Count 4.13 M/mm3 (4.20-5.40); Red Cell Distribution Width 13.3 % (11.5-17.5); White Blood Count 7.7 K/mm3 (4.8-10.8)
[2022-12-21 19:18] LABS: Alanine Aminotransferase 11 U/L (12-78); Albumin Level 3.9 g/dl (3.5-5.0); Albumin/Globulin Ratio 1.6 (1.1-1.8); Alkaline Phosphatase 45 U/L (38-126); Anion Gap 12.6 mEq/L (5-15); Aspartate Amino Transferase 55 U/L (14-36); Bilirubin,Total 0.4 mg/dl (0.2-1.3); Blood Urea Nitrogen 13 mg/dl (7-17); Calcium 8.6 mg/dl (8.4-10.2); Carbon Dioxide 29 mmol/L (22.0-30.0); Chloride 99 mmol/L (98-107); Estimated Glomerular Filt Rate 94 ml/min (>60); GFR (African American) 113 ML/MIN (>60); Globulin 2.5 g/dL (1.3-3.2); Glucose 84 mg/dl (74-100); Potassium 3.6 mmoL/L (3.5-5.1); Sodium 137 mmol/L (136-145); Total Protein,Serum 6.4 g/dl (6.3-8.2)
[2022-12-21 19:34] LABS: T4 (Thyroxine) 8.4 ug/dl (5.53-11.0)
[2022-12-21 19:48] LABS: Thyroid Stimulating Hormone 2.22 uIU/mL (0.465-4.68)
== END ==
PROVIDERS: PCP Family Medicine; Visit Provider Family Medicine
DX: I95.9 Hypotension, unspecified (principal); R53.83 Other fatigue
CPT/HCPCS: 80053; 84436; 84443; 85025

== ENCOUNTER → 2023-03-15 06:41 | Outpatient (CLI) | payer OTHER, SELFPAY | PROVIDERS: PCP Family Medicine; Visit Provider Family Medicine | DX: R05.9 Cough, unspecified (principal) | CPT/HCPCS: 87635 ==

== ENCOUNTER 2023-09-16 18:58 | Outpatient (CLI) | payer OTHER, SELFPAY | END 2023-09-16 23:59 | LOC: LAB.DROPOF 18:58 | PROVIDERS: PCP Nurse Practitioner Family; Visit Provider Nurse Practitioner Family | DX: R10.30 Lower abdominal pain, unspecified (principal) | CPT/HCPCS: 87086 ==

== ENCOUNTER 2023-09-29 13:15 | Outpatient (CLI) | payer OTHER, SELFPAY ==
--- NOTE | 2023-09-29 13:16 | US_ITS ---
PROCEDURE: US TRANSVAGINAL CLINICAL INDICATION: menorrhagia COMPARISON: CT CT ABDOMEN PELVIS W CON from 09/23/2021 FINDINGS: Transvaginal sonographic images of the pelvis were obtained. UTERUS: 8.0cm x 5.2cmx 4.7 cm anteverted with a combined endometrial thickness of 4.4mm. There is a nabothian cyst in the cervix measuring 0.6 cm. There is a small 4.1 mm hyperechoic area adjacent to the endometrium at the fundus. LEFT OVARY: 3.2cmx2.5cmx1.6cm with a volume of 6.5ml. There are multiple follicles giving the ovary a polycystic appearance. The largest follicle measures 1.4 cm. There is a small cystic area just superior to the left ovary measuring 0.9 cm x 0.7 cm. Possible small hydrosalpinx post tubal. RIGHT OVARY: 3.6 cmx 3.1cmx2.1cm with a volume of 12.4ml. The right ovary has a polycystic appearance. Largest follicle measures 1.3 cm. There is a corpus luteum in the right ovary measuring 1.2 cm x 0.75 cm x 1.1 cm. Both ovaries are seen and appear polycystic. Doppler flow to both ovaries are seen. There is no fluid in the cul-de-sac. IMPRESSION: 1. Anteverted uterus normal in shape and size. The endometrium is thin. 2. There is a 4 mm hyperechoic area adjacent to the endometrium at the fundus likely insignificant. 3. Both ovaries are seen and appear polycystic. 4. There is a cystic area superior to the left ovary possibly a post tubal hydrosalpinx. 5. No fluid in the cul-de-sac. Dictated by: Toño Contreras MD 09/29/2023 15:46 Toño Contreras MD in [facility] 09/29/2023 15:46
== END 2023-09-29 23:59 ==
LOC: RAD 13:16
PROVIDERS: PCP Family Medicine; Visit Provider Obstetrics & Gynecology
DX: N92.0 Excessive and frequent menstruation with regular cycle (principal)
CPT/HCPCS: 76830